=== PATIENT | female | born 1970 | race Caucasian/White ===

== ENCOUNTER → 2023-11-04 13:56 | Outpatient (REF) | payer OTHER, SELFPAY | LOC: HWRAD 13:56 | PROVIDERS: ATTENDING PHYSICIAN Physician Assistant Medical | DX: R10.2 Pelvic and perineal pain (principal); R31.29 Other microscopic hematuria; R10.31 Right lower quadrant pain | CPT/HCPCS: 74176 ==

== ENCOUNTER 2024-01-12 06:09 | Day surgery (SDC) | payer OTHER, SELFPAY ==
[2023-12-30 08:12] VITALS: BMI 25.4
[2024-01-12 06:51] VITALS: BP 127/73
[2024-01-12] MEDS: TYLENOL 1000 MG PO (07:02)
[2024-01-12] MEDS: NORMOSOL-R 1000 IV (07:03)
[2024-01-12 07:10] VITALS: BMI 25.4
--- NOTE | 2024-01-12 07:47 | W.SUR.PREOP ---
Pre-Operative Surgical Note
-
I have examined this patient prior to the performance of the scheduled procedure.
The patient's condition is unchanged from the time of the current History and
Physical and the patient is able to undergo the scheduled procedure.
[2024-01-12 09:06] VITALS: BP 106/74
--- NOTE | 2024-01-12 09:06 | W.IMMPOSTOP ---
Surgical Immed Post Op Note
-
Primary Surgeon: Jhon Lund MD
Assisting Surgeon: None
Pre-op Diagnosis: Umbilical hernia
Post-op Diagnosis: Same
Procedure Performed: Open umbilical hernia repair with mesh
Anesthesia Type: General
Specimen / Cultures: None
Estimated Blood Loss: 1 cc
Complications: None
Operative Findings: 1.2 cm umbilical hernia closed with 0 PDS suture. Reinforced with 4 cm round onlay Bard soft mesh.
--- NOTE | 2024-01-12 09:10 | OR.RPT ---
Operative Report
Operative Report
Patient Name: Gertrude Bennett
: 1970
Date of Operation: 01/12/2024
Preoperative Diagnosis: Umbilical hernia
Postoperative Diagnosis: Same
Procedure(s):
Open umbilical hernia
Surgeon(s):
Dr. Lund
Dinkey Skinner(s):
JOHNATHAN Ruelas
Anesthesia: MAC
Estimated Blood Loss: 1 cc
Urine Output: None
Drains/Lines/Implants: 4 cm round Bard soft mesh (uncoated polypropylene mesh)
Specimens: None
Indication for surgery:
The patient has a mildly symptomatic ~1cm umbilical hernia. After review of their therapeutic options, they elected to pursue open repair.
Operative Findings: 1.2 cm umbilical hernia closed with 0 PDS suture. Reinforced with 4 cm round onlay Bard soft mesh.
Details of the operation:
After successful induction of anesthesia, the patient was prepped and draped in the supine position. A team timeout was performed confirming administration of DVT prophylaxis, IV antibiotics and SCDs. The skin was anesthestized with 0.25% Marcaine
and an infraumbilical incision was made and dissection carried down to the fascia. The hernia sac was then encircled and carefully dissected off of the umbilical stalk and returned to the abdomen. The defect measured 1.2 cm. The subcutaneous fat
was then dissected off of the anterior rectus sheath to create a pocket large enough to accommodate the mesh to ensure the mesh laid completely flat. For interrupted 0 PDS sutures were then laid out and a 4 x 4 centimeter round Bard soft mesh was
back-loaded over the tails and then tied down closing the defect and securing the mesh. The umbilical stalk was then tacked down to the fascia with a 3-0 Vicryl suture. The dermis was then approximated with interrupted 3-0 Vicryl sutures followed
by Dermabond. Once the glue had dried, we placed a folded up piece of gauze into the umbilicus and covered it with a large Tegaderm dressing and then suctioned out the gauze to create a vacuum dressing to help obliterate the space. The patient
returned to the Recovery Room in stable condition. Sponge and instrument counts were correct. No specimens sent to Pathology.
I was the attending physician and performed the procedure with assistance from the PA above. I was present for all portions of the case
Jhon Lund MD
[2024-01-12 09:21] VITALS: BP 109/65
[2024-01-12 09:36] VITALS: BP 115/64
[2024-01-12 09:51] VITALS: BP 125/70
[2024-01-12 10:06] VITALS: BP 134/73
== END 2024-01-12 10:38 | disposition home or self-care (01) ==
LOC: SDS 06:09
PROVIDERS: ATTENDING PHYSICIAN Surgery; FAMILY PHYSICIAN Physician Assistant Medical
DX: K42.9 Umbilical hernia without obstruction or gangrene (principal)
CPT/HCPCS: 49593; 36415; 93005

== ENCOUNTER → 2024-09-12 06:18 | Day surgery (SDC) | payer OTHER, SELFPAY | LOC: GI 06:18 | PROVIDERS: ATTENDING PHYSICIAN Internal Medicine | DX: Z12.11 Encounter for screening for malignant neoplasm of colon (principal); K57.30 Diverticulosis of large intestine without perforation or abscess without bleeding; Z86.0100 Personal history of colon polyps, unspecified | CPT/HCPCS: G0105 ==

== ENCOUNTER → 2024-09-14 08:09 | Outpatient (REF) | payer OTHER, SELFPAY | LOC: HWRAD 08:09 | PROVIDERS: ATTENDING PHYSICIAN Nurse Practitioner Obstetrics & Gynecology; FAMILY PHYSICIAN Physician Assistant Medical | DX: N93.9 Abnormal uterine and vaginal bleeding, unspecified (principal) | CPT/HCPCS: 76830; 76856 ==

== ENCOUNTER → 2024-09-27 07:10 | Outpatient (REF) | payer OTHER, SELFPAY | LOC: WDC 07:10 | PROVIDERS: ATTENDING PHYSICIAN Nurse Practitioner Obstetrics & Gynecology; FAMILY PHYSICIAN Physician Assistant Medical | DX: Z12.31 Encounter for screening mammogram for malignant neoplasm of breast (principal) | CPT/HCPCS: 77063; 77067 ==

== ENCOUNTER → 2024-10-10 12:47 | Outpatient (REF) | payer OTHER, SELFPAY | LOC: WDC 12:47 | PROVIDERS: ATTENDING PHYSICIAN Nurse Practitioner Obstetrics & Gynecology | DX: R92.333 Mammographic heterogeneous density, bilateral breasts (principal) | CPT/HCPCS: 76641 ==

== ENCOUNTER → 2025-06-24 16:18 | Outpatient (REF) | payer OTHER, SELFPAY | LOC: RAD 16:18 | PROVIDERS: ATTENDING PHYSICIAN Physician Assistant | DX: M79.89 Other specified soft tissue disorders (principal) | CPT/HCPCS: 93971 ==